=== PATIENT | male | born 1995 | race African-American/Black ===

== ENCOUNTER 2022-02-08 04:50 | Inpatient (IN) | payer BC, OTHER ==
[~2022-02-08] VITALS: Ht 180.3 cm; Wt 52.8 kg
[2022-02-08 05:18] LABS: Basophils # (auto) 0 10 ^3/uL (0-0.2); Basophils % (auto) 0.7 % (0.0-2.0); Eosinophils # (auto) 0.1 10 ^3/uL (0-0.8); Eosinophils % (auto) 1.9 % (0.0-7.0); Hematocrit 49.6 % (41.0-53.0); Hemoglobin 16.1 g/dL (13.5-17.5); Lymphocytes # (auto) 1.5 10 ^3/uL (0.4-5.4); Mean Corpuscular Hemoglobin 27.7 pg (28.0-32.0); Mean Corpuscular Hgb Conc. 32.4 g/dL (32.0-36.0); Mean Corpuscular Volume 85.5 fL (80.0-100.0); Monocytes # (auto) 0.5 10 ^3/uL (0-1.3); Monocytes % (auto) 8.5 % (0.0-12.0); Neutrophils # (auto) 4.2 10 ^3/uL (1.6-8.6); Neutrophils % (auto) 64.9 % (37.0-80.0); Nucleated Red Blood Cells % 0.1 %; Red Cell Distribution Width 13.2 % (11.8-14.3); White Blood Cell 6.4 10^3/uL (4.4-10.8)
[2022-02-08 05:36] LABS: Albumin 5.1 g/dL (3.4-5.0); BUN/Creatinine Ratio 6.7; Calcium 9.6 mg/dL (8.5-10.1); Magnesium 2.4 mg/dL (1.6-2.6); Potassium 4.1 mmol/L (3.5-5.1)
[2022-02-08 05:39] LABS: Bilirubin, Total 0.6 mg/dL (0.2-1.0); Total Protein 8.7 g/dL (6.4-8.2)
[2022-02-08] MEDS ORDERED: PROMETHAZINE HCL 25 MG/ML 1ML IV ONE (07:30)
[2022-02-08] MEDS ORDERED: SODIUM CHLORIDE 0.9% 1,000 ML IV ONE (07:30)
[2022-02-08] MEDS ORDERED: MORPHINE SULFATE 4 MG/ML SYR/VIAL IV ONE (07:30)
[2022-02-08 08:11] LABS: INR 0.99 (0.9-1.15); Partial Thromboplastin Time 30.2 sec (24.6-33.4)
[2022-02-08] MEDS ORDERED: LIDOCAINE 2%HCL (LOCAL ANESTH.) INJ 10ml MDV ONE (08:34)
[2022-02-08] MEDS ORDERED: BACITRACIN TOP OINT 1 UD PKG TOP ONE (08:45)
[2022-02-08] MEDS ORDERED: ONDANSETRON HCL 4 MG/2 ML VIAL IV PRN (11:45)
[2022-02-08] MEDS: MORPHINE SULFATE INJ 2 MG/ml SYRG IV PRN ×3 (12:26→23:13)
[2022-02-08 23:18] VITALS: BP 125/77
[2022-02-08] MEDS ORDERED: ALBU108A5 INH (23:56)
[2022-02-09 05:00] VITALS: BP 117/57
[2022-02-09] MEDS: MORPHINE SULFATE INJ 2 MG/ml SYRG IV PRN ×5 (06:26→21:55)
[2022-02-09 06:59] LABS: Basophils # (auto) 0 10 ^3/uL (0-0.2); Basophils % (auto) 0.2 % (0.0-2.0); Eosinophils # (auto) 0 10 ^3/uL (0-0.8); Eosinophils % (auto) 0.1 % (0.0-7.0); Hematocrit 45.2 % (41.0-53.0); Hemoglobin 14.4 g/dL (13.5-17.5); Lymphocytes # (auto) 0.7 10 ^3/uL (0.4-5.4); Lymphocytes % (auto) 9.8 % (10.0-50.0); Mean Corpuscular Hemoglobin 27.3 pg (28.0-32.0); Mean Corpuscular Hgb Conc. 31.9 g/dL (32.0-36.0); Mean Corpuscular Volume 85.7 fL (80.0-100.0); Monocytes # (auto) 0.4 10 ^3/uL (0-1.3); Neutrophils # (auto) 6.1 10 ^3/uL (1.6-8.6); Neutrophils % (auto) 84.9 % (37.0-80.0); Red Blood Cells 5.28 10^6/uL (4.5-5.90); Red Cell Distribution Width 13.2 % (11.8-14.3); White Blood Cell 7.2 10^3/uL (4.4-10.8)
[2022-02-09 07:38] LABS: BUN/Creatinine Ratio 10.4; Calcium 8.6 mg/dL (8.5-10.1); Potassium 4.3 mmol/L (3.5-5.1)
[2022-02-09 07:41] LABS: Bilirubin, Total 0.6 mg/dL (0.2-1.0); Total Protein 7.5 g/dL (6.4-8.2)
[2022-02-09 09:00] VITALS: BP 127/72
[2022-02-09 12:45] VITALS: BP 134/74
[2022-02-09] MEDS: HYDROcodone-ACET 5/325MG TAB PO PRN (14:45)
[2022-02-09 16:32] VITALS: BP 127/83
[2022-02-09] MEDS: ENOXAPARIN SOD 40 MG/0.4 ML SYRINGE SC SCH (17:28)
[2022-02-09 22:00] VITALS: BP 120/76
[2022-02-10] MEDS: HYDROcodone-ACET 5/325MG TAB PO PRN (01:06)
[2022-02-10 05:00] VITALS: BP_SYST 123; BP_SYST 125; BP_DIAS 68; BP_DIAS 76
[2022-02-10] MEDS: MORPHINE SULFATE INJ 2 MG/ml SYRG IV PRN ×3 (08:16→12:50)
[2022-02-10 09:24] VITALS: BP 122/83
[2022-02-10] MEDS: ENOXAPARIN SOD 40 MG/0.4 ML SYRINGE SC SCH (09:46)
[2022-02-10 12:33] VITALS: BP 128/85
[2022-02-10] MEDS: HYDROcodone-ACET 10/325MG TAB PO PRN ×3 (13:59→23:18)
[2022-02-10] MEDS: DOCUSATE SOD 100 MG CAP PO PRN (14:00)
[2022-02-10 16:38] VITALS: BP 121/72
[2022-02-10 22:00] VITALS: BP 122/76
[2022-02-11 05:00] VITALS: BP 125/86
[2022-02-11] MEDS: HYDROcodone-ACET 10/325MG TAB PO PRN ×2 (07:45→11:52)
[2022-02-11 09:10] VITALS: BP 122/72
[2022-02-11] MEDS: ENOXAPARIN SOD 40 MG/0.4 ML SYRINGE SC SCH (09:34)
[2022-02-11] MEDS: MORPHINE SULFATE INJ 2 MG/ml SYRG IV PRN (09:51)
[2022-02-11] MEDS: DOCUSATE SOD 100 MG CAP PO PRN ×2 (11:51→20:44)
[2022-02-11 13:12] VITALS: BP 123/77
[2022-02-11 17:07] VITALS: BP 147/61
[2022-02-11 21:56] VITALS: BP 124/74
[2022-02-12] MEDS: HYDROcodone-ACET 10/325MG TAB PO PRN (02:50)
[2022-02-12 05:00] VITALS: BP 120/71
[2022-02-12 09:00] VITALS: BP 123/68
[2022-02-12] MEDS: ENOXAPARIN SOD 40 MG/0.4 ML SYRINGE SC SCH ×2 (10:02→13:44)
[2022-02-12 13:00] VITALS: BP 114/70
[2022-02-12 16:55] VITALS: BP 123/75
[2022-02-12 22:00] VITALS: BP 120/77
[2022-02-13 04:35] VITALS: BP 124/67
[2022-02-13 09:00] VITALS: BP 128/55
[2022-02-13 13:00] VITALS: BP 122/70
[2022-02-13 16:31] VITALS: BP 122/70
== END 2022-02-13 17:08 | disposition home or self-care (01) | DRG 199 ==
LOC: ER 04:50 → TELE 11:42 → TELE-WESTW 22:29
PROVIDERS: ADMIT Internal Medicine; ATTEND Internal Medicine
PROC: 0W9930Z Drainage of Right Pleural Cavity with Drainage Device, Percutaneous Approach (ICD-10-PCS; principal; 2022-02-08)
DX: J93.83 Other pneumothorax (principal); J96.01 Acute respiratory failure with hypoxia; J43.9 Emphysema, unspecified; F12.90 Cannabis use, unspecified, uncomplicated; Z20.822 Contact with and (suspected) exposure to COVID-19; J45.909 Unspecified asthma, uncomplicated; Z83.3 Family history of diabetes mellitus
CPT/HCPCS: 32556; 36415; 71045; 71250; 80053; 83735; 84443; 84484; 85025; 85610; 85730; 93005; 96361; 96372; 96374; 96375; 96376; G0378; J2001; J2405

== ENCOUNTER 2022-02-21 21:35 | Emergency (ER) | payer OTHER ==
[~2022-02-21] VITALS: Ht 180.3 cm; Wt 135.0 kg
[~2022-02-21 21:35] MED LIST: ALBU108A5 INH
[2022-02-22 00:59] LABS: Basophils # (auto) 0.1 10 ^3/uL (0-0.2); Basophils % (auto) 1.1 % (0.0-2.0); Eosinophils # (auto) 0.1 10 ^3/uL (0-0.8); Eosinophils % (auto) 0.7 % (0.0-7.0); Hematocrit 43.3 % (41.0-53.0); Hemoglobin 14.3 g/dL (13.5-17.5); Lymphocytes # (auto) 0.3 10 ^3/uL (0.4-5.4); Lymphocytes % (auto) 3.9 % (10.0-50.0); Mean Corpuscular Hemoglobin 28.3 pg (28.0-32.0); Mean Corpuscular Hgb Conc. 33.2 g/dL (32.0-36.0); Mean Corpuscular Volume 85.4 fL (80.0-100.0); Monocytes # (auto) 0.6 10 ^3/uL (0-1.3); Monocytes % (auto) 7.6 % (0.0-12.0); Neutrophils # (auto) 7.1 10 ^3/uL (1.6-8.6); Neutrophils % (auto) 86.7 % (37.0-80.0); Red Blood Cells 5.06 10^6/uL (4.5-5.90); Red Cell Distribution Width 12.8 % (11.8-14.3); White Blood Cell 8.2 10^3/uL (4.4-10.8)
[2022-02-22 01:16] LABS: Albumin 4.5 g/dL (3.4-5.0); Calcium 9.4 mg/dL (8.5-10.1); Potassium 4.2 mmol/L (3.5-5.1)
[2022-02-22 01:19] LABS: Bilirubin, Total 0.5 mg/dL (0.2-1.0); Total Protein 8.1 g/dL (6.4-8.2)
[2022-02-22 02:00] VITALS: BP 126/81
== END 2022-02-22 03:21 | disposition home or self-care (01) ==
LOC: ER 21:35
DX: U07.1 COVID-19 (principal)
CPT/HCPCS: 36415; 71045; 80053; 85025; 86308; 87804